=== PATIENT | female | born 1975 | race American Indian/Alaskan Native ===

== ENCOUNTER 2018-03-31 17:17 | Emergency (ER) | payer SELFPAY ==
--- NOTE | 2018-03-31 18:33 | Emergency Department Report ---
Chief Complaint: Head Injury Stated Complaint: HEAD/EYE TRUMA Time Seen by Provider: 03/31/18 18:24 - HPI History of Present Illness: Facial trauma from falling object, patient has periorbital ecchymosis and injected sclera of left eye - Exam Vital Signs: Vital Signs 03/31/18 17:30 Temperature 98.6 F Pulse Rate 85 Respiratory 18 Rate Blood Pressure 187/107 O2 Sat by Pulse 98 Oximetry MSE screening note: Focused history and physical exam performed. Due to findings the following was ordered: ED Disposition for MSE Condition: Stable
--- NOTE | 2018-03-31 20:04 | Emergency Department Report ---
ED Head Trauma HPI - General Chief complaint: Head Injury Stated complaint: HEAD/EYE TRUMA Time Seen by Provider: 03/31/18 18:24 Source: patient Mode of arrival: Ambulatory Limitations: No Limitations - History of Present Illness Initial comments: 42-year-old female comes to the emergency room reporting that she was moving furniture when a heavy object had fallen on her head and slid down her face. Patient presents with swelling and bruising to her left eye. This happened yesterday. Patient has a past medical history of hypertension currently takes Norvasc and miconazole and seasonal allergies which she takes Zyrtec's. She did take Aleve at home last dose about 2 PM. Patient reports she is not driving. -: days(s) (1) Mechanism of Injury: other (heavy item falling on her face) Location: occipital (left) Quality: aching Consistency: constant Context: other (has taken Aleve) Associated Symptoms: vision changes (seeing double) - Related Data Previous Rx's Medication Instructions Recorded Last Taken Type Erythromycin [Erythromycin Ophth 1 applic OS QID 10 Days #1 tube 03/31/18 Unknown Rx Oint] traMADol [Ultram 50 MG tab] 50 mg PO Q6HR PRN #12 tablet 03/31/18 Unknown Rx Allergies/Adverse reactions: Allergies Allergy/AdvReac Type Severity Reaction Status Date / Time No Known Allergies Allergy Verified 03/31/18 21:08 ED Review of Systems ROS: Stated complaint: HEAD/EYE TRUMA Other details as noted in HPI Constitutional: denies: chills, fever Eyes: eye pain, vision change ENT: denies: ear pain, throat pain Respiratory: denies: cough, shortness of breath, wheezing Cardiovascular: denies: chest pain, palpitations Endocrine: no symptoms reported Gastrointestinal: denies: abdominal pain, nausea, diarrhea Genitourinary: denies: urgency, dysuria, discharge Musculoskeletal: denies: back pain, joint swelling, arthralgia Skin: denies: rash, lesions Neurological: denies: headache, weakness, paresthesias ED Past Medical Hx - Past Medical History Hx Hypertension: Yes - Surgical History Past Surgical History?: Yes Hx Cholecystectomy: Yes - Social History Smoking Status: Never Smoker Substance Use Type: None - Medications Home Medications: Home Medications Medication Instructions Recorded Confirmed Last Taken Type Erythromycin [Erythromycin Ophth 1 applic OS QID 10 Days #1 tube 03/31/18 Unknown Rx Oint] traMADol [Ultram 50 MG tab] 50 mg PO Q6HR PRN #12 tablet 03/31/18 Unknown Rx ED Physical Exam - General Limitations: No Limitations General appearance: alert, in no apparent distress - Head Head exam: Present: normocephalic, other (abrasion to the left lateral eyebrow) - Eye Eye exam: Present: PERRL, EOMI - Expanded Eye Exam Expanded Eyelids: Erythema: Left, Swelling: Left Pupils: Regular, Round: Bilateral, Reactive: Bilateral Sclera/Conjunctival: Normal Inspection: Right, Hemorrhage: Left Visual acuity (R) = 20/: 20 Visual acuity (L) = 20/: 50 With correction: Yes IOP (R) in mmH IOP (L) in mmH IOP measured with: Tonopen - ENT ENT exam: Present: mucous membranes moist - Neck Neck exam: Present: normal inspection, full ROM. Absent: tenderness ED Course Vital Signs 03/31/18 17:30 Temperature 98.6 F Pulse Rate 85 Respiratory 18 Rate Blood Pressure 187/107 O2 Sat by Pulse 98 Oximetry - Radiology Data Radiology results: report reviewed HISTORY: facial trauma COMPARISON: No prior studies are available for comparison. FINDINGS: Bones: Nasal bones, zygomatic arches, mandible and pterygoid plates are intact. There is defect involving the medial wall of left orbit with herniation of orbital fat into the left ethmoid sinus region.. Paranasal sinuses: Clear. Soft tissues: Mild degree left periorbital preseptal soft tissue swelling is noted.. Other: Bilateral temporomandibular joints demonstrate normal alignment.. IMPRESSION: Mild degree periorbital preseptal soft tissue swelling. Defect involving the medial wall of left orbit with herniation of orbital fat into the ethmoid sinus region may represent an acute versus chronic fracture deformity. Transcribed By: [facility] [place]ictated By: MIKO CEVALLOS Electronically Authenticated By: MIKO CEVALLOS Signed Date/Time: 03/31/182046 FINDINGS: Skull and scalp: Normal. Paranasal sinuses: There is opacification of left ethmoid air cells with deformity of the medial wall of left orbit and extension of fat into the sinus region.. Ventricles and subarachnoid spaces: Normal. Cerebrum: No evidence of hemorrhage, acute infarction or mass . Cerebellum and brainstem: No evidence of hemorrhage, acute infarction or mass. Vasculature: Normal. Comments: None. IMPRESSION: No acute intracranial hemorrhage Mild degree left proptosis with mild degree periorbital preseptal soft tissue swelling. There is also defect involving the medial wall of left orbit with extension of orbital fat into the ethmoid sinus region most likely representing acute fracture. Please refer to report on CT facial bones. Transcribed By: [facility] [place]ictated By: MIKO CEVALLOS Electronically Authenticated By: MIKO CEVALLOS Signed Date/Time: 03/31/182018 DD/ 18 TD/TT: 03/31/182018 - Medical Decision Making Patient has been seen by this provider in fast track. This provider as Dr. Witt to come and evaluate patient's eye. Fluorescein exam uptake to the cornea and sclera Visual acuity has been ordered CT of eye and head has been ordered Request for [place] emergency room for consult. Spoke to Dr. Guzmán the casing soaker at [place] since her eye pressure is within normal limits she feels that she does not the patient needs to be transferred here to [place]. We'll have patient follow up with an casing soaker. I will place patient on antibiotics ointment for her eye. Critical care attestation.: If time is entered above; I have spent that time in minutes in the direct care of this critically ill patient, excluding procedure time. ED Disposition Clinical Impression: Left eye trauma Qualifiers: Encounter type: initial encounter Qualified Code(s): S05.92XA - Unspecified injury of left eye and orbit, initial encounter Corneal abrasion, left Qualifiers: Encounter type: initial encounter Qualified Code(s): S05.02XA - Injury of conjunctiva and corneal abrasion without foreign body, left eye, initial encounter Disposition: DC-01 TO HOME OR SELFCARE Is pt being admited?: No Does the pt Need Aspirin: No Condition: Stable Instructions: Corneal Abrasion (ED) Additional Instructions: Please take pain medication as needed please use eye ointment antibiotics to the left eye. You can place ice on your eye to help with the swelling. I Have listed several for your convenience. Please inform them that she had an eye trauma with a possible orbital fracture. Prescriptions: Erythromycin [Erythromycin Ophth Oint] 1 applic OS QID 10 Days #1 tube traMADol [Ultram 50 MG tab] 50 mg PO Q6HR PRN #12 tablet PRN Reason: Pain Referrals: LAURA WITT MD [Staff Physician] - 3-5 Days [facility] [Provider Group] - 3-5 Days [facility] [Provider Group] - 3-5 Days Forms: Work/School Release Form(ED)
--- NOTE | 2018-03-31 20:21 | Cat Scan Report ---
FINAL REPORT PROCEDURE: CT HEAD/BRAIN WO CON TECHNIQUE: Computerized tomography of the head was performed without contrast material. HISTORY: facial trauma COMPARISON: No prior studies are available for comparison. FINDINGS: Skull and scalp: Normal. Paranasal sinuses: There is opacification of left ethmoid air cells with deformity of the medial wall of left orbit and extension of fat into the sinus region.. Ventricles and subarachnoid spaces: Normal. Cerebrum: No evidence of hemorrhage, acute infarction or mass . Cerebellum and brainstem: No evidence of hemorrhage, acute infarction or mass. Vasculature: Normal. Comments: None. IMPRESSION: No acute intracranial hemorrhage Mild degree left proptosis with mild degree periorbital preseptal soft tissue swelling. There is also defect involving the medial wall of left orbit with extension of orbital fat into the ethmoid sinus region most likely representing acute fracture. Please refer to report on CT facial bones.
--- NOTE | 2018-03-31 20:48 | Cat Scan Report ---
FINAL REPORT PROCEDURE: CT FACIAL BONES WO CON TECHNIQUE: Computerized tomography of the facial bones and soft tissues with axial and coronal sections performed from the cranial aspect of the frontal sinuses to the caudal portion of the mandible without contrast material. HISTORY: facial trauma COMPARISON: No prior studies are available for comparison. FINDINGS: Bones: Nasal bones, zygomatic arches, mandible and pterygoid plates are intact. There is defect involving the medial wall of left orbit with herniation of orbital fat into the left ethmoid sinus region.. Paranasal sinuses: Clear. Soft tissues: Mild degree left periorbital preseptal soft tissue swelling is noted.. Other: Bilateral temporomandibular joints demonstrate normal alignment.. IMPRESSION: Mild degree periorbital preseptal soft tissue swelling. Defect involving the medial wall of left orbit with herniation of orbital fat into the ethmoid sinus region may represent an acute versus chronic fracture deformity.
[2018-03-31] MEDS ORDERED: TETRACAINE 0.5% OU ONE (21:06)
[2018-03-31] MEDS ORDERED: FUL-GLO OP ONE ×2 (21:06→21:08)
[2018-03-31 21:36] VITALS: BP 162/96
== END 2018-03-31 22:45 | disposition home or self-care (01) ==
LOC: ED 17:17
DX: S05.92XA Unspecified injury of left eye and orbit, initial encounter (principal); S05.02XA Injury of conjunctiva and corneal abrasion without foreign body, left eye, initial encounter; I10 Essential (primary) hypertension; Z90.49 Acquired absence of other specified parts of digestive tract; W20.8XXA Other cause of strike by thrown, projected or falling object, initial encounter; Y93.89 Activity, other specified; Y99.8 Other external cause status; Y92.89 Other specified places as the place of occurrence of the external cause
CPT/HCPCS: 70450; 70486